=== PATIENT | female | born 1950 | race Caucasian/White ===

== ENCOUNTER 2020-01-28 01:24 | Emergency (ER) | payer MEDICARE, BC ==
[2020-01-28] MEDS ORDERED: HYDROmorphone 1 MG/ML Syringe ONE (02:15)
[2020-01-28] MEDS ORDERED: Promethazine 25 MG/ML SDV ONE (02:16)
--- NOTE | 2020-01-28 06:58 | EDM.PDOC ---
ED HPI GENERAL MEDICAL PROBLEM - General Chief Complaint: Lower Extremity Injury/Pain Stated Complaint: LEFT HIP PAIN Time Seen by Provider: 01/28/20 01:40 Source of Information: Reports: Patient History Limitations: Reports: No Limitations - History of Present Illness INITIAL COMMENTS - FREE TEXT/NARRATIVE: 69-year-old female presents to the ED complaining of severe left buttock pain radiating down her posterior thigh to her foot. Patient states she rolled up here from [facility] to go to the [employer] tomorrow. So she was in the car most of the day. She has a history of low back pain problems and previous laminectomy 2 years ago. However she was pain-free when she got into the vehicle this morning. She found the pain unbearable in the hotel room tonight and elected to come to the ED for evaluation. Onset: Today, Sudden Onset Date: 01/27/20 Onset Time: 23:30 Duration: Hour(s):, Getting Worse Location: Reports: Back (Pain primarily in her left buttock radiating down the posterior aspect of her left thigh in the L4 V nerve root distribution. She reports it radiates all the way down to her left calf.) Quality: Reports: Ache (Rubs the pain is a deep aching) Severity: Severe (Pain is severe 9 out of 10) Improves with: Reports: None Worsens with: Reports: Movement Context: Reports: Other (Melva is occurrence after driving in a motor vehicle for the last 5 to 6 hours.). Denies: Activity (Weightbearing and walking.), Exercise, Lifting, Sick Contact, Trauma Associated Symptoms: Reports: No Other Symptoms Treatments SHANK TURNER: Reports: Acetaminophen, NSAIDS (Motrin with no relief.) - Related Data Allergies Allergy/AdvReac Type Severity Reaction Status Date / Time No Known Allergies Allergy Verified 01/28/20 06:34 Past Medical History - Past Surgical History Neurological Surgical History: Reports: Lumbar Spine (He has had a laminectomy and discectomy she believes at L4-L5 2 years ago. She has occasional pain in the left buttock but is overall much improved.) Social & Family History - Living Situation & Occupation Living situation: Reports: Occupation: Retired Social History Comment: She and her reside in [facility]. Review of Systems - Review of Systems Review Of Systems: See Below Constitutional: Reports: No Symptoms Eyes: Reports: Glasses Ears: Reports: No Symptoms Nose: Reports: No Symptoms Mouth/Throat: Reports: No Symptoms Respiratory: Reports: No Symptoms Cardiovascular: Reports: No Symptoms GI/Abdominal: Reports: Other (Occasional problems with constipation) Genitourinary: Reports: Incontinence (Urinary frequency.), Other Musculoskeletal: Reports: Back Pain (Knees and hip. She has had a left total knee replacement), Joint Pain Skin: Reports: No Symptoms Neurological: Reports: Other Psychiatric: Reports: No Symptoms (Occasional radiculopathy into the left post erior buttock in the L5 nerve root distribution.) ED EXAM, GENERAL - Physical Exam Exam: See Below Exam Limited By: No Limitations General Appearance: Alert, WD/WN, Moderate Distress, Other (She appears to be in a good deal of pain. Temperature is 36.7 with a heart rate of 72. Respiratory is 22 with sats of 98% BP 114/88.) Eye Exam: Bilateral Eye: Normal Inspection, PERRL Respiratory/Chest: No Respiratory Distress, Lungs Clear, Normal Breath Sounds, No Accessory Muscle Use, Chest Non-Tender Cardiovascular: Normal Peripheral Pulses, Regular Rate, Rhythm, No Edema, No Gallop, No Murmur Peripheral Pulses: 2+: Posterior Tibial (L), Posterior Tibial (R), Dorsalis Pedis (L), Dorsalis Pedis (R) GI/Abdominal: Normal Bowel Sounds, Soft, Non-Tender, No Organomegaly, No Mass, Pelvis Stable, Rebound Back Exam: Normal Inspection, Decreased Range of Motion, Other (Acute localized no muscle spasm or pain localized to any of the facet signs in her lumbar spine. She has a wild well-healed midline lumbar spine surgical scar. Perhaps very mild slight increased lordotic curvature of the lumbar spine. Most of the pain was centered within the superior two thirds of the left sacroiliac joint.). No: CVA Tenderness (L), CVA Tenderness (R), Paraspinal Tenderness, Vertebral Tenderness Extremities: Other (She has evidence of osteoarthritic changes in her right knee and it is warm to palpation along the joint line. She has had a total left knee replacement.) Neurological: Alert, Oriented, CN II-XII Intact, Normal Cognition, Other (Straight leg raising on the right side was tolerated well greater than 60 degrees. Normal internal and external rotation of the hip with no exacerbation of pain on the left side. On the left side I could not straight leg raiser to greater than 60 degrees with no evidence of nerve root entrapment. There was increased pain with stressing the left sacroiliac joint with external rotation of the hip on that side.) Psychiatric: Normal Affect, Normal Mood Skin Exam: Warm, Dry, Intact, Normal Color, No Rash Course - Vital Signs Last Recorded V/S: Last Vital Signs Temp 36.7 C 01/28/20 06:35 Pulse 72 01/28/20 06:35 Resp 22 H 01/28/20 06:35 BP 114/88 01/28/20 06:35 Pulse Ox 98 01/28/20 06:35 - Radiology Interpretation Free Text/Narrative:: 69-year-old female presents to the ED for evaluation of severe pain primarily in her left buttock that radiates down the posterior aspect of her thigh in the L5 nerve root distribution she says to her calf. She has had previous lumbar spine surgery she believes with L4-L5 discectomy and laminectomy. On examination I can localize no back pain or paraspinal muscle spasm. Pain seem to be limited to the superior two thirds of the left sacroiliac joint. She may have some piriformis muscle spasm. Leg raising did not show any sign of nerve root impingement. Patient is in quite bad pain. Therefore given an injection of 1 mg of Dilaudid with Phenergan 12.5 mg IM. She will be discharged home on prednisone 20 mg twice daily for 5 days and then 1 tab in the morning only for another 5 days. Voltaren 5 mg twice daily for the next 8 days to relieve inflammation. Percocet tabs 5/325 mg 1 or 2 every 4-6 hours necessary for pain relief. 16 tablets provided. She will follow-up with her personal care physician when she gets back to [place]. She usually doctors in [place]. Departure - Departure Time of Disposition: 05:35 Disposition: Home, Self-Care 01 Condition: Fair Clinical Impression: Radicular pain of left lower extremity - Discharge Information *PRESCRIPTION DRUG MONITORING PROGRAM REVIEWED*: Not Applicable *COPY OF PRESCRIPTION DRUG MONITORING REPORT IN PATIENT MUNIRA: Not Applicable Referrals: PCP,Not In Area [Primary Care Provider] - Forms: ED Department Discharge Additional Instructions: Evaluation in the emergency room tonight in regards to severe pain in the left buttock radiating down the posterior aspect of your left thigh. You were fine this morning when you got into the vehicle and traveled up to [place] from [facility]. It is felt that you likely aggravated the sacroiliac joint on the left side. There appears to be a component of piriformis muscle inflammation on examination on the left side. You were treated with an intramuscular injection of Dilaudid 1 mg with Phenergan 12.5 mg to provide acute pain relief. You were discharged home on prednisone 20 mg twice daily with breakfast and supper for the next 5 days and then once in the morning for another 5 days. Take anti-inflammatory Voltaren 75 mg twice daily with food for the next 8 days. Percocet tabs 5/325 mg strength 1 or 2 every 4-6 hours necessary for pain relief. Follow-up with personal care physician when you get back home if not markedly improved. Sepsis Event Note (ED) - Focused Exam Vital Signs: Vital Signs Temp Pulse Resp BP Pulse Ox 01/28/20 06:35 36.7 C 72 22 H 114/88 98
== END 2020-01-28 02:47 | disposition home or self-care (01) ==
LOC: JD.ED 01:24
DX: M54.10 Radiculopathy, site unspecified (principal)
CPT/HCPCS: 96372; 99283; J1170; J2550